=== PATIENT | male | born 1950 | race Caucasian/White ===

== ENCOUNTER 2023-06-13 19:02 | Inpatient (IN) | payer MEDICARE, MEDICAID ==
[2023-06-13] MEDS: Sodium Chloride 0.9% 1,000 ML IV ONE ×2 (19:02→19:30)
[2023-06-13 19:43] LABS: HEMATOCRIT 34.8 % (40.0-52.0); HEMOGLOBIN 11.6 g/dL (14.0-18.0); MEAN CORPUSCULAR HEMOGLOBIN 27.4 pg (26.0-32.0); MEAN CORPUSCULAR HGB CONC 33.3 g/dL (32.0-36.0); MEAN CORPUSCULAR VOLUME 82.3 fL (78.0-93.0); PLATELET COUNT,PLT 260 x10^3/uL (130-400); RED BLOOD CELL COUNT 4.23 x10^6/uL (4.5-6.0); WHITE BLOOD CELL COUNT,WBC 6.8 x10^3/uL (4.0-10.0)
[2023-06-13 19:57] LABS: BAND PERCENT MAN 19 % (0-6); LYMPHOCYTES ABSOLUTE MAN 0.8 x10^3/uL (1.0-4.8); LYMPHOCYTES PERCENT MAN 12 % (25-50); MONOCYTES ABSOLUTE MAN 0.1 x10^3/uL (0.0-0.8); MONOCYTES PERCENT MAN 2 % (2-11); NEUTROPHILS ABSOLUTE MAN 5.8 x10^3/uL (1.8-7.7); PLATELET COUNT ESTIMATE ADEQUATE; SEG NEUTROPHILS PERCENT MAN 67 % (50-80)
[2023-06-13 20:00] LABS: ANISOCYTOSIS 2+ MODERATE
[2023-06-13 20:02] LABS: ALANINE AMINOTRANSFERASE,ALT 20 U/L (16-63); ALKALINE PHOSPHATASE 100 U/L (46-116); ASPARTATE AMNIOTRANSFERASE,AST 36 U/L (15-37); BILIRUBIN TOTAL 0.4 mg/dL (0.2-1.0); BLOOD UREA NITROGEN,BUN 51 mg/dL (7-18); CARBON DIOXIDE,CO2 21 mmol/L (21-32); CHLORIDE,CL 98 mmol/L (98-107); GLUCOSE RANDOM 122 mg/dL (70-99); PROTEIN TOTAL,TP 6.1 g/dL (6.4-8.2); SODIUM,NA 135 mmol/L (136-145)
[2023-06-13 20:03] LABS: ANION GAP 18.6 mmol/L (5-15); ESTIMATED GFR 22 mL/min (>=60)
[2023-06-13 20:05] LABS: POTASSIUM,K 2.6 mmol/L (3.5-5.1)
[2023-06-13 20:18] LABS: A/G RATIO 0.42; ALBUMIN 1.8 g/dL (3.4-5.0)
[2023-06-13 20:21] LABS: BILIRUBIN,URINE NEGATIVE (NEGATIVE); GLUCOSE,URINE NEGATIVE (NEGATIVE); KETONES,URINE NEGATIVE (NEGATIVE); LEUKOCYTE ESTERASE,URINE MODERATE (NEGATIVE); NITRITE,URINE NEGATIVE (NEGATIVE); OCCULT BLOOD,URINE NEGATIVE (NEGATIVE); PROTEIN,URINE 30 mg/dL (NEGATIVE); UROBILINOGEN,URINE 0.2 EU/dL (0.2)
[2023-06-13] MEDS: cefTRIAXone 2 GM Vial IVPUSH ONE (20:23)
[2023-06-13 20:25] LABS: APPEARANCE,URINE CLOUDY (CLEAR); COLOR,URINE DARK YELLOW (YELLOW)
[2023-06-13 20:26] LABS: BACTERIA,URINE MANY /HPF (NOT SEEN); MUCUS,URINE OCCASIONAL /LPF (NOT SEEN); RBC,URINE 0-5 /HPF (NOT SEEN); WBC,URINE 20-30 /HPF (NOT SEEN)
[2023-06-13] MEDS ORDERED: Acetaminophen 325 MG Tab PO PRN (21:34)
[2023-06-13] MEDS ORDERED: Acetaminophen 650 MG Supp RECTAL PRN (21:34)
[2023-06-13] MEDS: Sodium Chloride 0.9% 1,000 ML IV SCH (22:27)
[2023-06-13] MEDS: Potassium Chloride Riders 20 MEQ in Premix Bag 1 BAG IV ONE (22:30)
[2023-06-13] MEDS ORDERED: Bisacodyl 5 MG Tab PO PRN (22:42)
[2023-06-13] MEDS ORDERED: Ondansetron 4 MG Tab.DIS PO PRN (22:42)
[2023-06-13] MEDS ORDERED: Albuterol 0.083% 2.5 MG/3 ML Neb Soln INH PRN (22:42)
[2023-06-13] MEDS ORDERED: Albuterol/Ipratropium 3.0-0.5 MG/3 ML Neb Soln INH PRN (22:42)
[2023-06-14] MEDS: Potassium Chloride Riders 20 MEQ in Premix Bag 1 BAG IV ONE (00:38)
[2023-06-14] MEDS ORDERED: Atropine 1% Ophth Soln 5 ML Bottle SL PRN (01:57)
[2023-06-14] MEDS: Atropine 1% Ophth Soln 5 ML Bottle SL PRN (02:56)
[2023-06-14] MEDS ORDERED: Mineral Oil/Petrolatum,White Crm 454 GM Jar TOP SCH (09:00)
[2023-06-14] MEDS ORDERED: Aspirin 81 MG Tab.EC PO SCH (09:00)
[2023-06-14] MEDS ORDERED: Tamsulosin 0.4 MG Cap.ER PO SCH (09:00)
[2023-06-14] MEDS ORDERED: Calcium Citrate/Vitamin D3 315 MG-250 Unit Tab PO SCH (09:00)
[2023-06-14] MEDS ORDERED: cefTRIAXone 1 GM Vial IVPUSH SCH (09:00)
== END 2023-06-14 05:34 | disposition expired | DRG 871 ==
LOC: VM.ED 19:02 → VM.MS 20:59
PROVIDERS: ADMIT Internal Medicine; ATTEND Internal Medicine
PROC: 0T9B70Z Drainage of Bladder with Drainage Device, Via Natural or Artificial Opening (ICD-10-PCS; principal; 2023-06-13)
PROC: 3E03329 Introduction of Other Anti-infective into Peripheral Vein, Percutaneous Approach (ICD-10-PCS; 2023-06-13)
DX: A41.9 Sepsis, unspecified organism (principal); J96.01 Acute respiratory failure with hypoxia; R65.21 Severe sepsis with septic shock; N39.0 Urinary tract infection, site not specified; Z66 Do not resuscitate; I25.10 Atherosclerotic heart disease of native coronary artery without angina pectoris; I50.9 Heart failure, unspecified; I11.0 Hypertensive heart disease with heart failure; R57.0 Cardiogenic shock; R57.1 Hypovolemic shock; J44.9 Chronic obstructive pulmonary disease, unspecified; F41.9 Anxiety disorder, unspecified; E87.6 Hypokalemia; N19 Unspecified kidney failure; R53.1 Weakness; Z79.51 Long term (current) use of inhaled steroids; Z79.82 Long term (current) use of aspirin; Z79.899 Other long term (current) drug therapy; I25.2 Old myocardial infarction; Z95.5 Presence of coronary angioplasty implant and graft; Z98.890 Other specified postprocedural states; Z87.891 Personal history of nicotine dependence; Z91.81 History of falling
CPT/HCPCS: 36415; 51702; 70450; 71045; 80053; 81001; 83605; 85025; 87040; 87086; 94760 ×3; 96361; 96374; 99284; 99285; J0696; J7030 ×2; 83735; 87070; 87088; 87186; A9270-GY; J3480